=== PATIENT | female | born 1965 | race Caucasian/White ===

== ENCOUNTER 2019-04-03 20:40 | Emergency (ER) | payer MEDICAID ==
[~2019-04-03] VITALS: Ht 167.6 cm; Wt 76.0 kg
[2019-04-03] MEDS ORDERED: KETOROLAC 30MG/ML VIAL IV ONE (23:00)
[2019-04-03] MEDS ORDERED: SODIUM CHLORIDE 0.9% 1,000 ML IV ONE (23:00)
[2019-04-04 01:10] VITALS: BP 125/70
== END 2019-04-04 01:11 | disposition home or self-care (01) ==
LOC: ER 20:40
DX: J98.9 Respiratory disorder, unspecified (principal)
CPT/HCPCS: 71045; 87804; 96374; 99284; J1885; J7030

== ENCOUNTER 2019-11-04 14:52 | Inpatient (IN) | payer MEDICAID ==
[~2019-11-04] VITALS: Ht 152.4 cm; Wt 80.7 kg
[2019-11-04] MEDS ORDERED: MORPHINE SULFATE 4 MG/ML CPJ (NOT FOR IM USE) IV STA (14:57)
[2019-11-04] MEDS ORDERED: ONDANSETRON HCL 4MG/2ML INJ IV STA (14:57)
[2019-11-04] MEDS ORDERED: SODIUM CHLORIDE 0.9% 1,000 ML IV ONE (14:57)
[2019-11-04] MEDS ORDERED: MORPHINE SULFATE 4 MG/ML CPJ (NOT FOR IM USE) IV ONE ×2 (16:30→19:15)
[2019-11-04 18:46] LABS: BASOPHILS % 0.3 % (0.0-2.0); EOSINOPHILS % 0.2 % (0.0-5.0); HEMATOCRIT. 36.5 % (36.0-48.0); HEMOGLOBIN. 12.7 g/dL (12.0-16.0); LYMPHOCYTES % 19.1 % (20.0-50.0); MEAN CORPUSCULAR HEMOGLOBIN 31.8 pg (28.0-32.0); MEAN PLATELET VOLUME 10.3 fl (7.4-10.4); NEUTROPHILS % 73.4 % (40.0-76.0); PLATELET 149 x1000/uL (130-400); RED BLOOD CELL COUNT 4.01 mill/uL (4.2-5.4)
[2019-11-04 19:00] LABS: PROTHROMBIN TIME 10.7 sec (9.6-11.0)
[2019-11-04 19:13] LABS: CHLORIDE 110 mEq/L (98-107)
[2019-11-04 20:00] VITALS: BP 104/70
[2019-11-04] MEDS ORDERED: OXYCODONE HCL/ACETAMINOPHEN 5/325MG TABLET PO ONE (20:00)
[2019-11-04] MEDS ORDERED: ACETAMINOPHEN 325MG TABLET PO PRN (20:15)
[2019-11-04] MEDS ORDERED: MORPHINE SULFATE 2 MG/ML CPJ (NOT FOR IM USE) IV PRN (20:15)
[2019-11-04] MEDS ORDERED: ONDANSETRON HCL 4MG/2ML INJ IV PRN (20:15)
[2019-11-04] MEDS ORDERED: HYDROCODONE/ACETAMINOPHEN 10/325MG TABLET PO PRN (20:15)
[2019-11-04 20:30] VITALS: BP 104/70
[2019-11-04] MEDS: HYDROMORPHONE HCL/PF 2MG/ML CPJ IV PRN (20:36)
[2019-11-05] VITALS: BP 114/68
[2019-11-05] MEDS: HYDROMORPHONE HCL/PF 2MG/ML CPJ IV PRN ×8 (01:21→22:16)
[2019-11-05 04:00] VITALS: BP 118/69
[2019-11-05] MEDS ORDERED: BUPIVACAINE HCL/EPINEPHRINE/PF 0.5%/0.0005 10ML ONE (07:07)
[2019-11-05] MEDS ORDERED: BACITRACIN 50,000 UNITS/VIAL ONE (07:08)
[2019-11-05] MEDS ORDERED: VANCOMYCIN HCL 1 GM/VIAL ONE (07:08)
[2019-11-05] MEDS ORDERED: BUPIVACAINE HCL 0.5% (5MG/ML) 50ML ONE (07:08)
[2019-11-05] MEDS ORDERED: PROPOFOL 200MG/20ML VIAL IV ONE ×2 (07:47→09:23)
[2019-11-05] MEDS ORDERED: ROCURONIUM BROMIDE 10MG/ML VIAL 5ML IV ONE (07:47)
[2019-11-05] MEDS ORDERED: FENTANYL CITRATE/PF 50MCG/ML 2ML VIAL ONE (07:47)
[2019-11-05] MEDS ORDERED: MIDAZOLAM HCL 2 MG/2 ML VIAL ONE (07:47)
[2019-11-05] MEDS ORDERED: NEOSTIGMINE METHYLSULFATE 1MG/ML 10 ML VIAL ONE (07:47)
[2019-11-05] MEDS ORDERED: GLYCOPYRROLATE 0.2 MG/ML 2ML VIAL ONE (07:48)
[2019-11-05] MEDS ORDERED: ONDANSETRON HCL 4MG/2ML INJ IV PRN ×2 (08:00→08:45)
[2019-11-05] MEDS ORDERED: HYDROCODONE/ACETAMINOPHEN 5/325MG TABLET PO PRN (08:00)
[2019-11-05] MEDS ORDERED: ONDANSETRON HCL 4MG/2ML INJ ONE (08:04)
[2019-11-05] MEDS ORDERED: DEXAMETHASONE 4MG/ML 1ML VIAL ONE (08:04)
[2019-11-05] MEDS ORDERED: LABETALOL 5MG/ML SYR 20 MG/4 ML SYRINGE IV PRN (08:45)
[2019-11-05] MEDS ORDERED: MEPERIDINE HCL/PF 25MG/ML CPJ IV PRN (08:45)
[2019-11-05] MEDS ORDERED: ALBUTEROL 90MCG/PUFF 17GM INHALER INH ONE (08:52)
[2019-11-05 12:30] VITALS: BP 133/83
[2019-11-05] MEDS ORDERED: ALBU6.7H9 INH (12:54)
[2019-11-05 14:00] VITALS: BP 129/88
[2019-11-05 16:00] VITALS: BP 153/89
[2019-11-05] MEDS: CEFAZOLIN 1000MG PREMIX 50 ML IV SCH ×2 (16:12→22:15)
[2019-11-05 20:00] VITALS: BP 137/77
[2019-11-06] VITALS (7 sets, daily range): BP systolic 113–136; BP diastolic 58–79
[2019-11-06] MEDS: HYDROCODONE/ACETAMINOPHEN 5/325MG TABLET PO PRN ×4 (03:11→21:02)
[2019-11-06] MEDS: CEFAZOLIN 1000MG PREMIX 50 ML IV SCH ×2 (06:33→13:31)
[2019-11-06] MEDS: ENOXAPARIN 40MG/0.4ML SYR SUBCUT SCH (09:02)
[2019-11-06 11:16] LABS: BASOPHILS % 0.3 % (0.0-2.0); EOSINOPHILS % 0.2 % (0.0-5.0); HEMATOCRIT. 33.3 % (36.0-48.0); HEMOGLOBIN. 11.6 g/dL (12.0-16.0); LYMPHOCYTES % 28.4 % (20.0-50.0); MEAN CORPUSCULAR HEMOGLOBIN 31.8 pg (28.0-32.0); MEAN CORPUSCULAR VOLUME 91.2 fL (81.0-99.0); MEAN PLATELET VOLUME 11.1 fl (7.4-10.4); MONOCYTES % 10.6 % (2.0-8.0); NEUTROPHILS % 60.5 % (40.0-76.0); PLATELET 141 x1000/uL (130-400); RED BLOOD CELL COUNT 3.65 mill/uL (4.2-5.4)
[2019-11-06] MEDS ORDERED: HYDR-4009 MT (12:13)
[2019-11-06] MEDS ORDERED: MORPHINE SULFATE 2 MG/ML CPJ (NOT FOR IM USE) IV SCH (15:30)
[2019-11-07] VITALS: BP 115/72
[2019-11-07 04:00] VITALS: BP 111/78
[2019-11-07] MEDS: HYDROCODONE/ACETAMINOPHEN 5/325MG TABLET PO PRN (06:26)
[2019-11-07 07:17] LABS: BASOPHILS % 0.7 % (0.0-2.0); EOSINOPHILS % 0.9 % (0.0-5.0); HEMATOCRIT. 35.9 % (36.0-48.0); HEMOGLOBIN. 12.4 g/dL (12.0-16.0); LYMPHOCYTES % 31.1 % (20.0-50.0); MEAN CORPUSCULAR HEMOGLOBIN 31.4 pg (28.0-32.0); MEAN CORPUSCULAR VOLUME 91.1 fL (81.0-99.0); MEAN PLATELET VOLUME 10.1 fl (7.4-10.4); NEUTROPHILS % 56.3 % (40.0-76.0); PLATELET 151 x1000/uL (130-400); RED BLOOD CELL COUNT 3.95 mill/uL (4.2-5.4); RED CELL DISTRIBUTION WIDTH 12.8 % (11.6-14.6)
[2019-11-07 08:00] VITALS: BP 120/69
[2019-11-07] MEDS: ENOXAPARIN 40MG/0.4ML SYR SUBCUT SCH (09:00)
[2019-11-07] MEDS: MORPHINE SULFATE 4 MG/ML CPJ (NOT FOR IM USE) IV PRN ×2 (11:07→18:19)
[2019-11-07 12:00] VITALS: BP 111/78
[2019-11-07 16:00] VITALS: BP 122/76
[2019-11-07 20:00] VITALS: BP 109/62
[2019-11-08] VITALS: BP 115/73
[2019-11-08] MEDS: MORPHINE SULFATE 4 MG/ML CPJ (NOT FOR IM USE) IV PRN ×4 (01:55→20:15)
[2019-11-08 04:00] VITALS: BP 117/74
[2019-11-08 06:41] LABS: BASOPHILS % 0.4 % (0.0-2.0); EOSINOPHILS % 1.4 % (0.0-5.0); HEMATOCRIT. 36.3 % (36.0-48.0); HEMOGLOBIN. 12.7 g/dL (12.0-16.0); LYMPHOCYTES % 36.3 % (20.0-50.0); MEAN CORPUSCULAR HEMOGLOBIN 31.8 pg (28.0-32.0); MEAN CORPUSCULAR VOLUME 91.3 fL (81.0-99.0); MEAN PLATELET VOLUME 11.1 fl (7.4-10.4); MONOCYTES % 9.7 % (2.0-8.0); NEUTROPHILS % 52.2 % (40.0-76.0); PLATELET 163 x1000/uL (130-400); RED BLOOD CELL COUNT 3.98 mill/uL (4.2-5.4); RED CELL DISTRIBUTION WIDTH 12.8 % (11.6-14.6)
[2019-11-08 08:00] VITALS: BP 140/81
[2019-11-08] MEDS: ENOXAPARIN 40MG/0.4ML SYR SUBCUT SCH (09:17)
[2019-11-08 12:00] VITALS: BP 119/76
[2019-11-08 16:00] VITALS: BP 110/66
[2019-11-08 20:00] VITALS: BP 118/74
[2019-11-09] VITALS: BP 104/73
[2019-11-09 04:00] VITALS: BP 130/68
[2019-11-09] MEDS: MORPHINE SULFATE 4 MG/ML CPJ (NOT FOR IM USE) IV PRN ×3 (06:37→14:24)
[2019-11-09 07:27] VITALS: BP 125/80
[2019-11-09] MEDS: ENOXAPARIN 40MG/0.4ML SYR SUBCUT SCH (08:55)
[2019-11-09] MEDS ORDERED: HYDROCODONE/ACETAMINOPHEN 5/325MG TABLET PO PRN (10:15)
[2019-11-09 12:00] VITALS: BP 121/76
[2019-11-09] MEDS: HYDROCODONE/ACETAMINOPHEN 10/325MG TABLET PO PRN ×2 (12:36→18:53)
[2019-11-09 16:00] VITALS: BP 110/68
[2019-11-09 20:00] VITALS: BP 107/71
== END 2019-11-09 22:36 | disposition home or self-care (01) | DRG 313 ==
LOC: ER 15:06 → EDBEDREQTM 16:32 → EDBEDREQ 16:32 → EDBEDREQTM 18:30 → EDBEDREQ 18:30 → ENRESERV 19:20 → 6EST 20:12
PROVIDERS: ADMIT Internal Medicine; ATTEND Internal Medicine
PROC: 0QBD0ZZ Excision of Right Patella, Open Approach (ICD-10-PCS; principal; 2019-11-05)
PROC: 0SCC0ZZ Extirpation of Matter from Right Knee Joint, Open Approach (ICD-10-PCS; 2019-11-05)
DX: S82.001A Unspecified fracture of right patella, initial encounter for closed fracture (principal); S76.191A Other specified injury of right quadriceps muscle, fascia and tendon, initial encounter; E87.8 Other disorders of electrolyte and fluid balance, not elsewhere classified; E66.9 Obesity, unspecified; R74.0 Nonspecific elevation of levels of transaminase and lactic acid dehydrogenase [LDH]; Z68.34 Body mass index [BMI] 34.0-34.9, adult; V43.52XA Car driver injured in collision with other type car in traffic accident, initial encounter; Y92.410 Unspecified street and highway as the place of occurrence of the external cause; Y93.89 Activity, other specified; Y99.8 Other external cause status; Z71.89 Other specified counseling; Z71.3 Dietary counseling and surveillance
CPT/HCPCS: 36415; 71045; 73552; 73560; 73590; 76000; 80053; 85025; 93005; 96374; 97162; 97166; 97530; 99285; J0171; J0690; J1100; J1170; J1650; J2250; J2270; J2405; J2704; J2710; J3010; J3370; J3490; J7030; L1830